=== PATIENT | female | born 1955 | race Caucasian/White ===

== ENCOUNTER 2023-06-07 15:28 | Inpatient (IN) | payer MEDICARE ==
[~2023-06-07] VITALS: Ht 157.5 cm; Wt 56.2 kg
[2023-06-07] MEDS ORDERED: DILTIAZEM HCL VIAL 5 ML ONE (15:55)
[2023-06-07] MEDS ORDERED: SODIUM CHLORIDE 0.9% 500ML 500 ML ONE (15:55)
[2023-06-07] MEDS ORDERED: SODIUM CHLORIDE 0.9% 1000ML 1,000 ML IV STA (15:57)
[2023-06-07] MEDS ORDERED: DILTIAZEM HCL 5 MG/ML 5 ML VIAL IV STA ×2 (15:57→17:00)
[2023-06-07 16:02] LABS: BASOPHILS % 0.2 % (0.0-1.0); EOSINOPHILS % 0.5 % (0.0-6.0); HEMATOCRIT 43.7 % (34.2-44.1); HEMOGLOBIN 14.7 g/dL (12.0-16.0); LYMPHOCYTES # (AUTO) 2.9 (1.0-3.2); LYMPHOCYTES % 45.7 % (18.0-39.1); MEAN CORPUSCULAR HEMOGLOBIN 33.3 pg (28-32); MEAN CORPUSCULAR HGB CONC 33.6 g/dL (31-35); MEAN CORPUSCULAR VOLUME 99.1 fL (81-99); MONOCYTES # (AUTO) 0.7 (0.2-0.8); MONOCYTES % 10.6 % (4.4-11.3); NEUTROPHILS # (AUTO) 2.7 (2.1-6.9); NEUTROPHILS % 42.8 % (38.7-80.0); PLATELET COUNT 136 x10e3/uL (140-360); RED BLOOD COUNT 4.41 x10e6/uL (3.6-5.1); RED CELL DISTRIBUTION WIDTH 14.4 % (11.7-14.4); WHITE BLOOD COUNT 6.24 x10e3/uL (4.8-10.8)
[2023-06-07 16:13] LABS: INR 0.96; PARTIAL THROMBOPLASTIN TIME 26.1 seconds (23.8-35.5)
[2023-06-07] MEDS ORDERED: DILTIAZEM HCL 60 MG TAB PO SCH (16:15)
[2023-06-07 16:20] LABS: ALBUMIN 4.1 g/dL (3.5-5.0); ALBUMIN/GLOBULIN RATIO 1.1 (0.8-2.0); ANION GAP 18.3 mmol/L (8-16); CALCIUM 9.6 mg/dL (8.4-10.2); CREATININE, SERUM 1.32 mg/dL (0.57-1.11); MAGNESIUM 1.5 MG/DL (1.3-2.1); POTASSIUM 3.3 mmol/L (3.5-5.1)
[2023-06-07] MEDS: ENOXAPARIN SOD INJ 60 MG/0.6 ML SYR SC SCH (16:29)
[2023-06-07 16:42] LABS: THYROID STIMULATING HORMONE 1.568 uIU/mL (0.350-4.940)
[2023-06-07] MEDS ORDERED: ONDANSETRON HCL INJ 2MG/ML 2ML 2 MG/ML VIAL IV PRN (16:45)
[2023-06-07] MEDS: FAMOTIDINE 20 MG/2 ML VIAL IV SCH (18:57)
[2023-06-07] MEDS ORDERED: METOPROLOL TARTRATE 50 MG TAB PO SCH ×2 (20:00)
[2023-06-07] MEDS ORDERED: METOPROLOL TARTRATE 25 MG TAB PO SCH (20:00)
[2023-06-07 20:15] VITALS: BP 131/87; PULSE 95; RESP 20; TEMP 98.4; O2SAT 98
[2023-06-07 20:30] VITALS: BP 131/87; PULSE 95; RESP 20; TEMP 98.4; O2SAT 98
[2023-06-07] MEDS: METOPROLOL TARTRATE 50 MG TAB PO SCH (20:51)
[2023-06-07] MEDS ORDERED: AMLODIPINE BESYL5 MG PO (20:58)
[2023-06-07] MEDS ORDERED: LYRICA75 MG PO (20:58)
[2023-06-07] MEDS ORDERED: METOPROLOL TAR100 MG PO (20:58)
[2023-06-07] MEDS ORDERED: POTASSIUM CHLO20 ME2 PO ×2 (20:58)
[2023-06-07 21:00] VITALS: BP 131/87; PULSE 95; RESP 20; TEMP 98.4; O2SAT 98
[2023-06-07] MEDS ORDERED: ACETAMINOPHEN 325 MG TAB PO PRN (21:15)
[2023-06-07] MEDS ORDERED: PREGABALIN 75 MG CAP PO PRN (21:15)
[2023-06-07] MEDS: POTASSIUM CHLORIDE 20 MEQ TAB CR PO SCH (21:28)
[2023-06-08] VITALS (8 sets, daily range): BP systolic 118–152; BP diastolic 72–96; PULSE 64–117; RESP 17–20; TEMP 98.2–98.8; O2SAT 95–97
[2023-06-08 00:43] LABS: CREATINE KINASE 94 IU/L (29-168)
[2023-06-08 05:27] LABS: EOSINOPHILS % 0.7 % (0.0-6.0); HEMOGLOBIN 14.6 g/dL (12.0-16.0); LYMPHOCYTES # (AUTO) 2.5 (1.0-3.2); LYMPHOCYTES % 55.8 % (18.0-39.1); MEAN CORPUSCULAR HEMOGLOBIN 33.2 pg (28-32); MEAN CORPUSCULAR VOLUME 97.7 fL (81-99); MONOCYTES # (AUTO) 0.5 (0.2-0.8); MONOCYTES % 10.2 % (4.4-11.3); NEUTROPHILS # (AUTO) 1.5 (2.1-6.9); NEUTROPHILS % 33.1 % (38.7-80.0); PLATELET COUNT 110 x10e3/uL (140-360); RED CELL DISTRIBUTION WIDTH 14.1 % (11.7-14.4); WHITE BLOOD COUNT 4.41 x10e3/uL (4.8-10.8)
[2023-06-08] MEDS: ENOXAPARIN SOD INJ 60 MG/0.6 ML SYR SC SCH ×2 (05:43→17:31)
[2023-06-08] MEDS: FAMOTIDINE 20 MG/2 ML VIAL IV SCH ×2 (05:43→17:31)
[2023-06-08 05:47] LABS: ALANINE AMINOTRANSFERASE 29 IU/L (0-55); ALBUMIN 3.7 g/dL (3.5-5.0); ALBUMIN/GLOBULIN RATIO 1.1 (0.8-2.0); ALKALINE PHOSPHATASE 54 IU/L (40-150); ANION GAP 15.8 mmol/L (8-16); BLOOD UREA NITROGEN 11 mg/dL (7-26); BUN/CREATININE RATIO 13 (6-25); CALCIUM 9.1 mg/dL (8.4-10.2); CARBON DIOXIDE 25 mmol/L (22-29); CHLORIDE 106 mmol/L (98-107); CHOL/HDL RATIO 3.4 (3.0-3.6); CHOLESTEROL 189 MD/DL (0-199); CREATININE, SERUM 0.84 mg/dL (0.57-1.11); HDL CHOLESTEROL 56 MG/DL (40-60); SODIUM 144 mmol/L (136-145)
[2023-06-08 06:16] LABS: TRIGLYCERIDES 221 MG/DL (0-149)
[2023-06-08 06:20] LABS: POTASSIUM 2.8 mmol/L (3.5-5.1)
[2023-06-08] MEDS: POTASSIUM CHLORIDE 20MEQ/100ML 100 ML IV SCH ×2 (08:34→10:12)
[2023-06-08] MEDS: METOPROLOL TARTRATE 50 MG TAB PO SCH ×2 (08:40→21:26)
[2023-06-08] MEDS: POTASSIUM CHLORIDE 20 MEQ TAB CR PO SCH ×2 (08:40→21:26)
[2023-06-08] MEDS: AMLODIPINE BESYLATE 5 MG TAB PO SCH ×2 (08:41→17:31)
[2023-06-08] MEDS ORDERED: ONDANSETRON HCL 4 MG ORAL DISINTEGRATING TAB PO PRN (11:30)
[2023-06-08] MEDS: AMIODARONE HCL 200 MG TAB PO SCH (17:31)
[2023-06-09] VITALS (14 sets, daily range): BP systolic 108–141; BP diastolic 77–109; PULSE 70–121; RESP 16–21; TEMP 98.1–98.9; O2SAT 95–100
[2023-06-09] MEDS: ENOXAPARIN SOD INJ 60 MG/0.6 ML SYR SC SCH (06:00)
[2023-06-09] MEDS: FAMOTIDINE 20 MG/2 ML VIAL IV SCH ×2 (06:23→17:43)
[2023-06-09 06:25] LABS: ANION GAP 13.9 mmol/L (8-16); CALCIUM 8.5 mg/dL (8.4-10.2); CREATININE, SERUM 0.81 mg/dL (0.57-1.11)
[2023-06-09 06:32] LABS: POTASSIUM 2.9 mmol/L (3.5-5.1)
[2023-06-09] MEDS ORDERED: POTASSIUM CHLORIDE 20MEQ/100ML 100 ML IV SCH (07:00)
[2023-06-09] MEDS: POTASSIUM CHLORIDE 20MEQ/100ML 100 ML IV SCH ×2 (07:30→09:30)
[2023-06-09] MEDS: METOPROLOL TARTRATE 50 MG TAB PO SCH ×2 (08:00→20:46)
[2023-06-09] MEDS: AMIODARONE HCL 200 MG TAB PO SCH ×2 (08:54→17:42)
[2023-06-09] MEDS: POTASSIUM CHLORIDE 20 MEQ TAB CR PO SCH ×2 (08:55→20:46)
[2023-06-09] MEDS: AMLODIPINE BESYLATE 5 MG TAB PO SCH ×2 (08:55→17:43)
[2023-06-09] MEDS ORDERED: ENOXAPARIN SOD INJ 60 MG/0.6 ML SYR SC ONE (11:15)
[2023-06-09] MEDS ORDERED: POTASSIUM CHLORIDE 20MEQ/100ML 100 ML IV ONE (11:30)
[2023-06-09] MEDS ORDERED: LIDOCAINE HCL 2% LOCAL INJ 5 ML SDV VIAL INJ ONE (11:57)
[2023-06-09] MEDS ORDERED: PROPOFOL IV EMULSION 10 MG/ML 20 ML VIAL ONE (11:57)
[2023-06-09] MEDS ORDERED: ONDANSETRON HCL INJ 2MG/ML 2ML 2 MG/ML VIAL ONE (11:57)
[2023-06-09] MEDS ORDERED: MIDAZOLAM HCL 2 MG/2 ML VIAL ONE (13:02)
[2023-06-09] MEDS ORDERED: FENTANYL CITRATE/PF 100MCG/2 ML INJ ONE (13:02)
[2023-06-09] MEDS ORDERED: BENZOCAINE 20% SPR 60 ML CAN ONE (13:25)
[2023-06-09] MEDS ORDERED: SODIUM CHLORIDE 0.9% 1000ML 1,000 ML ONE (13:25)
[2023-06-09] MEDS ORDERED: KETAMINE 50MG/5ML SYR ONE (13:46)
[2023-06-09] MEDS ORDERED: POTASSIUM CHLORIDE 20MEQ/100ML 300 ML IV ONE (14:45)
[2023-06-09] MEDS: APIXABAN 5 MG TABLET PO SCH (17:42)
[2023-06-10] VITALS: BP 127/82; PULSE 66; RESP 18; TEMP 97.9; O2SAT 93
[2023-06-10 04:00] VITALS: BP 120/74; PULSE 66; RESP 20; TEMP 98; O2SAT 94
[2023-06-10] MEDS: FAMOTIDINE 20 MG/2 ML VIAL IV SCH (06:09)
[2023-06-10 06:43] LABS: ALBUMIN 3.5 g/dL (3.5-5.0); ALBUMIN/GLOBULIN RATIO 1.3 (0.8-2.0); ANION GAP 11.1 mmol/L (8-16); CALCIUM 8.2 mg/dL (8.4-10.2); CREATININE, SERUM 0.89 mg/dL (0.57-1.11); POTASSIUM 3.1 mmol/L (3.5-5.1)
[2023-06-10 07:43] LABS: BASOPHILS % 0.3 % (0.0-1.0); EOSINOPHILS % 1.1 % (0.0-6.0); HEMATOCRIT 36.9 % (34.2-44.1); HEMOGLOBIN 12.2 g/dL (12.0-16.0); LYMPHOCYTES # (AUTO) 1.6 (1.0-3.2); LYMPHOCYTES % 43.9 % (18.0-39.1); MEAN CORPUSCULAR HEMOGLOBIN 33.2 pg (28-32); MEAN CORPUSCULAR HGB CONC 33.1 g/dL (31-35); MEAN CORPUSCULAR VOLUME 100.3 fL (81-99); MONOCYTES # (AUTO) 0.4 (0.2-0.8); MONOCYTES % 11.3 % (4.4-11.3); NEUTROPHILS # (AUTO) 1.6 (2.1-6.9); NEUTROPHILS % 43.1 % (38.7-80.0); RED BLOOD COUNT 3.68 x10e6/uL (3.6-5.1); RED CELL DISTRIBUTION WIDTH 14.1 % (11.7-14.4); WHITE BLOOD COUNT 3.62 x10e3/uL (4.8-10.8)
[2023-06-10 07:50] LABS: PLATELET COUNT 88 x10e3/uL (140-360)
[2023-06-10 08:11] VITALS: BP 147/79; PULSE 71; RESP 18; TEMP 97.3; O2SAT 99
[2023-06-10] MEDS: AMLODIPINE BESYLATE 5 MG TAB PO SCH (09:21)
[2023-06-10] MEDS: APIXABAN 5 MG TABLET PO SCH (09:21)
[2023-06-10] MEDS: POTASSIUM CHLORIDE 20 MEQ TAB CR PO SCH (09:21)
[2023-06-10] MEDS: AMIODARONE HCL 200 MG TAB PO SCH (09:22)
[2023-06-10] MEDS: METOPROLOL TARTRATE 50 MG TAB PO SCH (09:22)
[2023-06-10] MEDS ORDERED: ELIQUIS5 MG PO (11:54)
[2023-06-10] MEDS ORDERED: AMIODARONE HCL200 MG PO (11:54)
[2023-06-10 12:00] VITALS: BP 120/68; PULSE 69; RESP 18; TEMP 98.2; O2SAT 100
[2023-06-10 12:02] VITALS: BP 120/68; PULSE 69; RESP 18; TEMP 98.2; O2SAT 100
[2023-06-10 14:50] VITALS: BP 130/82; PULSE 67; RESP 20; TEMP 98.1; O2SAT 100
== END 2023-06-10 15:23 | disposition home or self-care (01) | DRG 310 ==
LOC: ER 15:31 → ERHOLD 16:56 → MED/SURG3 20:12
PROVIDERS: ADMIT Family Medicine; ATTEND Family Medicine
PROC: 5A2204Z Restoration of Cardiac Rhythm, Single (ICD-10-PCS; principal; 2023-06-08)
PROC: B24BZZ4 Ultrasonography of Heart with Aorta, Transesophageal (ICD-10-PCS; 2023-06-08)
DX: I48.92 Unspecified atrial flutter (principal); I48.20 Chronic atrial fibrillation, unspecified; K21.00 Gastro-esophageal reflux disease with esophagitis, without bleeding; E78.5 Hyperlipidemia, unspecified; I10 Essential (primary) hypertension; Z79.01 Long term (current) use of anticoagulants; Z20.822 Contact with and (suspected) exposure to COVID-19
CPT/HCPCS: 36415; 71045; 80048; 80053; 80061; 82550; 83735; 83880; 84132; 84436; 84443; 84479; 84484; 85025; 85610; 85730; 92960; 93005; 93306; 93312; 93320; 93325; 93355; 93971; 99252; 99284; J1650; J2001; J2250; J2405; J3480; J7030; J7040; U0002